=== PATIENT | female | born 1950 | race Caucasian/White ===

== ENCOUNTER 2020-11-22 12:05 | Observation (INO) ==
[2020-11-22 12:33] LABS: Basophils % 0.5 % (0.0-0.8); Eosinophils # 0.1 10*3/uL (0.0-0.87); Eosinophils % 1.9 % (0.00-10.9); Hematocrit 38.7 VOL% (35.7-47.0); Hemoglobin 12.8 GM/DL (12.0-16.0); Immature Granulocytes % 0.5 %; Immature Granulocytes Absolute 0.03 #; Lymphocytes # 2.1 10*3/uL (1.4-4.0); Lymphocytes % 37.2 % (21.3-54.2); Mean Corpuscular HGB Conc 33.1 GM/DL (32-36); Mean Corpuscular Volume 83.2 FL (87-102); Mean Platelet Volume 10.2 FL (9.6-12.0); Neutrophils % 51.9 % (38.7-73.9); Platelet Count 202 T/CUMM (130-400); Red Blood Count 4.65 MC/CUMM (3.8-5.5); Red Cell Distribution Width 14.4 % (9.3-17.3); White Blood Count 5.7 T/CUMM (4-12)
[2020-11-22 12:52] LABS: Alanine Aminotransferase 45 U/L (13-56); Albumin 3.8 G/DL (3.4-5.0); Alkaline Phosphatase 82 U/L (45-117); Aspartate Amino Transferase 32 U/L (0-37); Bilirubin,Total < 0.39 MG/DL (0.2-1.0); Blood Urea Nitrogen 13 MG/DL (7-18); Calcium 9.6 MG/DL (8.5-10.1); Carbon Dioxide 24 MMOL/L (21-32); Estimated Glom Filtration Rate 76 ML/MIN; Glucose 297 MG/DL (74-106); Osmolality,Calculated 278.2 MOS/KG (273-304); Potassium 4.1 MMOL/L (3.5-5.1); Sodium 134 MMOL/L (136-145); Total Protein 7.3 G/DL (6.4-8.2)
[2020-11-22 12:55] LABS: PT Patient Result 10.9 SECS (9.8-11.9); Partial Thromboplastin Time 21.7 SECS (23.9-33.8)
[2020-11-22 13:00] LABS: Lymphocytes 44 % (20-55); Segmented Neutrophils 53 % (50-85); Total Cells Counted 100
[2020-11-22 13:04] LABS: Atypical Lymphocytes Few; Microcytosis 1+; Ovalocytes Slight
[2020-11-22 13:05] LABS: Platelet Estimate Normal
[2020-11-22 14:16] LABS: Barbiturates Screen,Urine Negative (Negative); Benzodiazepines Screen,Urine Negative (Negative); Cannabinoid Screen,Urine Negative (Negative); Opiate Screen,Urine Negative (Negative); Phencyclidine Screen,Urine Negative (Negative)
[2020-11-22] MEDS ORDERED: GLUCAGON 1 MG VIAL IM PRN (14:56)
[2020-11-22] MEDS ORDERED: DEXTROSE 50% 25 GM/50 ML VIAL IV PRN (14:56)
[2020-11-22] MEDS ORDERED: ENOXAPARIN 40 MG/0.4 ML SYRINGE SUBCUT SCH (16:00)
[2020-11-22] MEDS: INSULIN LISPRO 100 UNIT/ML SUBCUT SCH ×2 (16:33→20:46)
[2020-11-22] MEDS: GABAPENTIN 400 MG CAPSULE PO SCH (20:45)
[2020-11-22] MEDS: PRAMIPEXOLE 0.25 MG TABLET PO SCH (20:45)
[2020-11-22] MEDS: METOPROLOL TARTRATE 50 MG TABLET PO SCH (20:46)
[2020-11-23 05:31] LABS: Basophils % 0.6 % (0.0-0.8); Eosinophils # 0.2 10*3/uL (0.0-0.87); Hematocrit 39.7 VOL% (35.7-47.0); Hemoglobin 13.4 GM/DL (12.0-16.0); Immature Granulocytes % 0.3 %; Immature Granulocytes Absolute 0.02 #; Lymphocytes # 3.2 10*3/uL (1.4-4.0); Lymphocytes % 44.6 % (21.3-54.2); Mean Corpuscular HGB Conc 33.8 GM/DL (32-36); Mean Corpuscular Volume 81.7 FL (87-102); Mean Platelet Volume 10.4 FL (9.6-12.0); Monocytes % 7.3 % (1.7-12.7); Neutrophils % 44.2 % (38.7-73.9); Platelet Count 232 T/CUMM (130-400); Red Blood Count 4.86 MC/CUMM (3.8-5.5); Red Cell Distribution Width 14.4 % (9.3-17.3); White Blood Count 7.2 T/CUMM (4-12)
[2020-11-23 06:04] LABS: Calcium 9.4 MG/DL (8.5-10.1); Osmolality,Calculated 275.2 MOS/KG (273-304); Potassium 3.6 MMOL/L (3.5-5.1); Risk Ratio 6.05; VLDL CHOLESTEROL 182.8 MG/DL
[2020-11-23] MEDS ORDERED: LEVOTHYROXINE 100 MCG TABLET PO SCH (06:30)
[2020-11-23 07:51] LABS: Atypical Lymphocytes Few; Eosinophils 6 % (0-10); Hypochromasia Slight; Lymphocytes 39 % (20-55); Platelet Estimate Normal; Segmented Neutrophils 39 % (50-85); Total Cells Counted 100
[2020-11-23] MEDS: METOPROLOL TARTRATE 50 MG TABLET PO SCH (08:18)
[2020-11-23] MEDS: GABAPENTIN 400 MG CAPSULE PO SCH (08:18)
[2020-11-23] MEDS: PRAMIPEXOLE 0.25 MG TABLET PO SCH (08:19)
[2020-11-23] MEDS: INSULIN LISPRO 100 UNIT/ML SUBCUT SCH ×2 (08:19→11:14)
[2020-11-23] MEDS ORDERED: FENOFIBRATE 160 MG TABLET PO SCH (09:00)
[2020-11-23] MEDS ORDERED: LOSARTAN 25 MG TABLET PO SCH (09:00)
[2020-11-23 11:13] VITALS: BP 127/59
== END 2020-11-23 13:38 | disposition home or self-care (01) ==
LOC: EDBD → EDUNIT# → N.ED 12:05 → N.EDINP 12:05 → N.TELES 15:38
PROVIDERS: ADMIT Internal Medicine; ATTEND Internal Medicine

== ENCOUNTER 2021-12-19 23:07 | Inpatient (IN) ==
[2021-12-19] MEDS ORDERED: NALOXONE 0.4 MG/ML VIAL IV PRN (23:24)
[2021-12-19 23:57] LABS: Arterial Base Excess iSTAT -1 MMOL/L (-2.5-2.5); Arterial O2 Saturation iSTAT 96 % (95-100); Arterial PCO2 iSTAT 43 MM HG (35-48); Arterial PO2 iSTAT 88 MM HG (80-95); Arterial Total CO2 iSTAT 26 MMO/L (23-27); Arterial pH iSTAT 7.368 (7.35-7.45)
[2021-12-20 00:07] LABS: Basophils % 0.4 % (0.0-0.8); Eosinophils # 0.2 10*3/uL (0.0-0.87); Eosinophils % 1.9 % (0.00-10.9); Hematocrit 36.2 VOL% (35.7-47.0); Immature Granulocytes % 0.3 %; Immature Granulocytes Absolute 0.03 #; Lymphocytes # 2.2 10*3/uL (1.4-4.0); Lymphocytes % 24.4 % (21.3-54.2); Mean Corpuscular HGB Conc 33.1 GM/DL (32-36); Mean Corpuscular Volume 89.4 FL (87-102); Mean Platelet Volume 10.8 FL (9.6-12.0); Monocytes # 1.2 10*3/uL (0.11-0.8); Monocytes % 13.3 % (1.7-12.7); Neutrophils % 59.7 % (38.7-73.9); Platelet Count 215 T/CUMM (130-400); Red Blood Count 4.05 MC/CUMM (3.8-5.5)
[2021-12-20] MEDS ORDERED: SODIUM CHLORIDE 0.9% 1,000 ML IV STA (00:23)
[2021-12-20 00:30] LABS: Bacteria,Urine Occasional /HPF (Few); Bilirubin,Urine Negative (Negative); Blood, Urine Negative (Negative); Glucose,Urine (UA) >=1000 mg/dL (Negative); Ketones,Urine Negative (Negative); Mucus,Urine Occasional /LPF (Occasional); Nitrite,Urine Negative (Negative); Protein,Urine Negative (Negative); RBC,Urine <1 /HPF (0-4); Squamous Epithelial Cell,Urine Occasional /HPF (0-10); Urine Appearance Clear (Clear); Urine Color Yellow (Yellow); Urine Urobilinogen 0.2 eU/dL (<2.0)
[2021-12-20 00:51] LABS: Albumin 3.8 G/DL (3.4-5.0); Bilirubin,Total 0.5 MG/DL (0.20-1.00); Calcium 9.1 MG/DL (8.5-10.1); Osmolality,Calculated 281.8 MOS/KG (273-304); Potassium 3.8 MMOL/L (3.5-5.1); Total Protein 6.9 G/DL (6.4-8.2)
[2021-12-20 00:53] LABS: Barbiturates Screen,Urine Negative (Negative); Benzodiazepines Screen,Urine Negative (Negative); Cannabinoid Screen,Urine Negative (Negative); Opiate Screen,Urine Positive (Negative); Phencyclidine Screen,Urine Negative (Negative)
[2021-12-20 01:19] LABS: Acetaminophen < 2.0 UG/ML (10-30); Salicylate < 2.8 MG/DL (2.8-20)
[2021-12-20] MEDS ORDERED: ONDANSETRON 4 MG/2 ML VIAL IV PRN (01:44)
[2021-12-20] MEDS ORDERED: ACETAMINOPHEN 325 MG TABLET PO PRN (01:44)
[2021-12-20] MEDS ORDERED: GLUCAGON 1 MG VIAL IM PRN (01:44)
[2021-12-20] MEDS ORDERED: ALUMINUM/MAGNES/SIMETH MAX STR 30 ML UDCUP PO PRN (01:44)
[2021-12-20] MEDS ORDERED: POTASSIUM CHLORIDE 20 MEQ TABLET PO PRN (01:52)
[2021-12-20] MEDS ORDERED: MAGNESIUM SULF RIDER 2 GM/50 ML PREMIX IV PRN (01:52)
[2021-12-20] MEDS ORDERED: MAGNESIUM SULF RIDER 4 GM/100 ML PREMIX IV PRN (01:52)
[2021-12-20] MEDS ORDERED: POTASSIUM CHLORIDE RIDER 10 MEQ/100 ML PREMIX IV PRN (01:52)
[2021-12-20] MEDS ORDERED: DEXTROSE 10% 250 ML BAG IV PRN ×2 (01:54→12:05)
[2021-12-20] MEDS: ENOXAPARIN 40 MG/0.4 ML SYRINGE SUBCUT SCH (02:27)
[2021-12-20] MEDS: LACTULOSE 20 GM/30 ML UDCUP PO SCH ×4 (02:35→20:33)
[2021-12-20] MEDS: SODIUM CHLORIDE 0.9% 1,000 ML IV SCH ×2 (02:42→11:59)
[2021-12-20 03:21] LABS: Basophils % 0.3 % (0.0-0.8); Eosinophils # 0.1 10*3/uL (0.0-0.87); Eosinophils % 1.4 % (0.00-10.9); Hematocrit 33.7 VOL% (35.7-47.0); Hemoglobin 11.2 GM/DL (12.0-16.0); Immature Granulocytes % 0.5 %; Immature Granulocytes Absolute 0.03 #; Lymphocytes # 1.7 10*3/uL (1.4-4.0); Lymphocytes % 26.1 % (21.3-54.2); Mean Corpuscular HGB Conc 33.2 GM/DL (32-36); Mean Corpuscular Volume 88.5 FL (87-102); Mean Platelet Volume 10.4 FL (9.6-12.0); Monocytes # 0.7 10*3/uL (0.11-0.8); Monocytes % 10.6 % (1.7-12.7); Neutrophils % 61.1 % (38.7-73.9); Platelet Count 177 T/CUMM (130-400); Red Blood Count 3.81 MC/CUMM (3.8-5.5); Red Cell Distribution Width 13.1 % (9.3-17.3); White Blood Count 6.3 T/CUMM (4-12)
[2021-12-20 04:03] LABS: Alanine Aminotransferase 42 U/L (13-56); Albumin 3.5 G/DL (3.4-5.0); Alkaline Phosphatase 68 U/L (45-117); Aspartate Amino Transferase 49 U/L (0-37); Bilirubin,Direct < 0.100 MG/DL (0.0-0.20); Bilirubin,Indirect 0.3 MG/DL (0.0-1.0); Blood Urea Nitrogen 31 MG/DL (7-18); Calcium 8.5 MG/DL (8.5-10.1); Carbon Dioxide 23 MMOL/L (21-32); Chloride 103 MMOL/L (98-107); Cholesterol 193 MG/DL (50-200); Glucose 216 MG/DL (74-106); HDL Cholesterol 33 MG/DL (40-60); Osmolality,Calculated 286.8 MOS/KG (273-304); Potassium 3.7 MMOL/L (3.5-5.1); Risk Ratio 5.85; Sodium 137 MMOL/L (136-145); Total Protein 6.7 G/DL (6.4-8.2); Triglycerides 797 MG/DL (2-150); VLDL Cholesterol 159.4 MG/DL
[2021-12-20] MEDS: INSULIN REGULAR 100 UNIT/ML SUBCUT SCH ×4 (08:08→20:35)
[2021-12-20] MEDS: PANTOPRAZOLE 40 MG TABLET PO SCH (08:54)
[2021-12-20 15:19] LABS: Free T4 (Free Thyroxine) 0.67 NG/DL (0.76-1.46)
[2021-12-20] MEDS: RIFAXIMIN 550 MG TABLET PO SCH (20:33)
[2021-12-20] MEDS: LATANOPROST 0.005% OPH SOLN 2.5 ML BOTTLE BOTH EYES SCH (20:36)
[2021-12-20] MEDS ORDERED: INSULIN GLARGINE 100 UNIT/ML SUBCUT SCH (21:00)
[2021-12-21] MEDS: LACTULOSE 20 GM/30 ML UDCUP PO SCH ×4 (01:57→20:41)
[2021-12-21] MEDS: ENOXAPARIN 40 MG/0.4 ML SYRINGE SUBCUT SCH (01:57)
[2021-12-21 05:37] LABS: Basophils % 0.4 % (0.0-0.8); Eosinophils # 0.1 10*3/uL (0.0-0.87); Eosinophils % 2.3 % (0.00-10.9); Hematocrit 31.4 VOL% (35.7-47.0); Hemoglobin 10.3 GM/DL (12.0-16.0); Immature Granulocytes % 0.4 %; Immature Granulocytes Absolute 0.02 #; Lymphocytes # 2.3 10*3/uL (1.4-4.0); Lymphocytes % 43.5 % (21.3-54.2); Mean Corpuscular HGB Conc 32.8 GM/DL (32-36); Mean Corpuscular Volume 88.7 FL (87-102); Mean Platelet Volume 10.7 FL (9.6-12.0); Monocytes # 0.6 10*3/uL (0.11-0.8); Monocytes % 10.7 % (1.7-12.7); Neutrophils % 42.7 % (38.7-73.9); Platelet Count 157 T/CUMM (130-400); Red Blood Count 3.54 MC/CUMM (3.8-5.5); Red Cell Distribution Width 13.1 % (9.3-17.3); White Blood Count 5.2 T/CUMM (4-12)
[2021-12-21 05:55] LABS: Calcium 8.2 MG/DL (8.5-10.1); Osmolality,Calculated 280.7 MOS/KG (273-304); Potassium 3.2 MMOL/L (3.5-5.1)
[2021-12-21] MEDS ORDERED: LEVOTHYROXINE 100 MCG TABLET PO SCH (06:30)
[2021-12-21] MEDS ORDERED: MAGNESIUM OXIDE 400 MG TABLET PO ONE (07:56)
[2021-12-21] MEDS ORDERED: POTASSIUM CHLORIDE 20 MEQ TABLET PO ONE (07:57)
[2021-12-21] MEDS: INSULIN REGULAR 100 UNIT/ML SUBCUT SCH ×4 (09:17→20:42)
[2021-12-21] MEDS: RIFAXIMIN 550 MG TABLET PO SCH ×2 (09:20→20:41)
[2021-12-21] MEDS: ASPIRIN EC 81 MG TABLET PO SCH (09:20)
[2021-12-21] MEDS: PANTOPRAZOLE 40 MG TABLET PO SCH (09:22)
[2021-12-21 11:31] LABS: Platelet Estimate Adequate; Polychromasia Slight
[2021-12-21] MEDS ORDERED: predniSONE 20 MG TABLET PO SCH (16:00)
[2021-12-21] MEDS: INSULIN LISPRO 100 UNIT/ML SUBCUT SCH ×2 (17:54→20:41)
[2021-12-21] MEDS: ROSUVASTATIN 20 MG TABLET PO SCH (20:41)
[2021-12-21] MEDS: METOPROLOL TARTRATE 25 MG TABLET PO SCH (20:41)
[2021-12-21] MEDS: LATANOPROST 0.005% OPH SOLN 2.5 ML BOTTLE BOTH EYES SCH (20:47)
[2021-12-21] MEDS ORDERED: INSULIN GLARGINE 100 UNIT/ML SUBCUT SCH ×2 (21:00)
[2021-12-22] MEDS: ENOXAPARIN 40 MG/0.4 ML SYRINGE SUBCUT SCH (01:27)
[2021-12-22] MEDS: LACTULOSE 20 GM/30 ML UDCUP PO SCH ×3 (01:27→21:41)
[2021-12-22 04:54] LABS: Basophils % 0.4 % (0.0-0.8); Eosinophils # 0.2 10*3/uL (0.0-0.87); Eosinophils % 2.8 % (0.00-10.9); Hematocrit 31.1 VOL% (35.7-47.0); Hemoglobin 10.3 GM/DL (12.0-16.0); Immature Granulocytes % 0.4 %; Immature Granulocytes Absolute 0.02 #; Lymphocytes # 1.6 10*3/uL (1.4-4.0); Mean Corpuscular HGB Conc 33.1 GM/DL (32-36); Mean Corpuscular Volume 89.4 FL (87-102); Mean Platelet Volume 10.3 FL (9.6-12.0); Monocytes # 0.6 10*3/uL (0.11-0.8); Neutrophils % 55.4 % (38.7-73.9); Platelet Count 169 T/CUMM (130-400); Red Blood Count 3.48 MC/CUMM (3.8-5.5); Red Cell Distribution Width 13.2 % (9.3-17.3); White Blood Count 5.4 T/CUMM (4-12)
[2021-12-22 05:21] LABS: Albumin 2.8 G/DL (3.4-5.0); Bilirubin,Total 0.5 MG/DL (0.20-1.00); Calcium 8.3 MG/DL (8.5-10.1); Osmolality,Calculated 275.2 MOS/KG (273-304); Potassium 3.5 MMOL/L (3.5-5.1)
[2021-12-22] MEDS: LEVOTHYROXINE 200 MCG TABLET PO SCH (05:48)
[2021-12-22] MEDS ORDERED: LEVOTHYROXINE 112 MCG TABLET PO SCH (06:30)
[2021-12-22] MEDS ORDERED: FENOFIBRATE 160 MG TABLET PO SCH (09:00)
[2021-12-22] MEDS: RIFAXIMIN 550 MG TABLET PO SCH ×2 (09:09→21:40)
[2021-12-22] MEDS: FUROSEMIDE 20 MG TABLET PO SCH (09:09)
[2021-12-22] MEDS: ASPIRIN EC 81 MG TABLET PO SCH (09:09)
[2021-12-22] MEDS: PANTOPRAZOLE 40 MG TABLET PO SCH (09:09)
[2021-12-22] MEDS: INSULIN LISPRO 100 UNIT/ML SUBCUT SCH ×2 (09:09→12:21)
[2021-12-22] MEDS: METOPROLOL TARTRATE 25 MG TABLET PO SCH ×2 (09:09→21:41)
[2021-12-22] MEDS: INSULIN REGULAR 100 UNIT/ML SUBCUT SCH ×4 (09:10→21:37)
[2021-12-22] MEDS ORDERED: INSULIN GLARGINE 100 UNIT/ML SUBCUT SCH (21:00)
[2021-12-22] MEDS: ROSUVASTATIN 20 MG TABLET PO SCH (21:41)
[2021-12-22] MEDS: LATANOPROST 0.005% OPH SOLN 2.5 ML BOTTLE BOTH EYES SCH (21:44)
[2021-12-23] MEDS: ENOXAPARIN 40 MG/0.4 ML SYRINGE SUBCUT SCH (02:17)
[2021-12-23 05:50] LABS: Basophils % 0.3 % (0.0-0.8); Eosinophils # 0.2 10*3/uL (0.0-0.87); Eosinophils % 3.1 % (0.00-10.9); Hematocrit 33.6 VOL% (35.7-47.0); Hemoglobin 11.1 GM/DL (12.0-16.0); Immature Granulocytes % 0.7 %; Immature Granulocytes Absolute 0.04 #; Lymphocytes # 2.6 10*3/uL (1.4-4.0); Lymphocytes % 42.6 % (21.3-54.2); Mean Corpuscular Volume 88.4 FL (87-102); Monocytes # 0.7 10*3/uL (0.11-0.8); Monocytes % 10.7 % (1.7-12.7); Neutrophils % 42.6 % (38.7-73.9); Platelet Count 166 T/CUMM (130-400); White Blood Count 6.1 T/CUMM (4-12)
[2021-12-23] MEDS: LEVOTHYROXINE 200 MCG TABLET PO SCH (06:10)
[2021-12-23 06:11] LABS: Atypical Lymphocytes Few; Eosinophils 4 % (0-10); Lymphocytes 48 % (20-55); Total Cells Counted 100
[2021-12-23 06:12] LABS: Microcytosis Slight; Platelet Estimate Adequate
[2021-12-23 06:18] LABS: Albumin 2.9 G/DL (3.4-5.0); Bilirubin,Total 0.6 MG/DL (0.20-1.00); Calcium 8.5 MG/DL (8.5-10.1); Osmolality,Calculated 274.1 MOS/KG (273-304); Potassium 3.4 MMOL/L (3.5-5.1); Total Protein 6.4 G/DL (6.4-8.2)
[2021-12-23] MEDS ORDERED: POTASSIUM CHLORIDE 20 MEQ TABLET PO ONE (07:19)
[2021-12-23] MEDS: LACTULOSE 20 GM/30 ML UDCUP PO SCH (08:35)
[2021-12-23] MEDS: INSULIN REGULAR 100 UNIT/ML SUBCUT SCH ×2 (08:35→12:51)
[2021-12-23] MEDS: FUROSEMIDE 20 MG TABLET PO SCH (08:39)
[2021-12-23] MEDS: METOPROLOL TARTRATE 25 MG TABLET PO SCH (08:39)
[2021-12-23] MEDS: ASPIRIN EC 81 MG TABLET PO SCH (08:39)
[2021-12-23] MEDS: PANTOPRAZOLE 40 MG TABLET PO SCH (08:39)
[2021-12-23] MEDS: RIFAXIMIN 550 MG TABLET PO SCH (08:39)
[2021-12-23] MEDS ORDERED: AZITHROMYCIN 250 MG TABLET PO ONE (10:54)
[2021-12-23] MEDS ORDERED: CEFUROXIME 500 MG TABLET PO ONE (11:30)
[2021-12-23 19:45] VITALS: BP 146/67
== END 2021-12-23 16:43 | disposition home health service (06) | DRG 442 ==
LOC: N.ED 23:07 → SUATTDRO 12-20 01:52 → N.EDINP 12-20 01:52 → N.TELEN 12-20 02:50
PROVIDERS: ADMIT Internal Medicine; ATTEND Family Medicine